=== PATIENT | female | born 1975 ===

== ENCOUNTER 2019-05-08 08:32 | Day surgery (SDC) | payer OTHER ==
--- NOTE | 2019-05-08 09:37 | Anesthesia Consultation ---
Anesthesia Consult and Med Hx Date of service: 05/08/19 - Airway Anesthetic Teeth Evaluation: Poor, Partials ROM Head & Neck: Adequate Mental/Hyoid Distance: Adequate Mallampati Class: Class II Intubation Access Assessment: Good - Pulmonary Exam CTA: Yes - Cardiac Exam Cardiac Exam: RRR - Pre-Operative Health Status ASA Pre-Surgery Classification: ASA3 Proposed Anesthetic Plan: General - Pulmonary Hx Smoking: Yes (1/2 PPD) Hx Sleep Apnea: No (BARBARA PRE SCREEN HIGH RISK) - Cardiovascular System Hx Hypertension: Yes (X 6 MONTHS) - Endocrine Hx Non-Insulin Dependent Diabetes: Yes - Hematic Hx Anemia: Yes - Other Systems Hx Cancer: No - Additional Comments Anesthesia Medical History Comments: Pt with DM, HTN , Obesity and current 1/2 pack a day smoker for D & C
--- NOTE | 2019-05-08 09:37 | Anesthesia Day of Surgery ---
Anesthesia Day of Surgery - Day of Surgery Patient Examined: Yes Patient H&P Reviewed: Yes Patient is NPO: Yes
[2019-05-08] MEDS ORDERED: ZOFRAN IV PRN (09:39)
[2019-05-08] MEDS ORDERED: DILAUDID IV PRN (09:39)
[2019-05-08 09:56] LABS: Basophils # (Auto) 0.1 K/mm3 (0.0-0.1); Basophils % (Auto) 1.1 % (0.0-1.8); Eosinophils # (Auto) 0.2 K/mm3 (0.0-0.4); Eosinophils % (Auto) 2.4 % (0.0-4.3); Hematocrit 38.3 % (30.3-42.9); Hemoglobin 12.3 gm/dl (10.1-14.3); Lymphocytes # (Auto) 2.5 K/mm3 (1.2-5.4); Lymphocytes % (Auto) 25.8 % (13.4-35.0); Mean Corpuscular HGB Conc 32 % (30-34); Mean Corpuscular Volume 74 fl (79-97); Monocytes # (Auto) 0.6 K/mm3 (0.0-0.8); Monocytes % (Auto) 5.8 % (0.0-7.3); Platelet Count 253 K/mm3 (140-440); Red Blood Count 5.17 M/mm3 (3.65-5.03); Red Cell Distribution Width 16.8 % (13.2-15.2)
[2019-05-08] MEDS ORDERED: VERSED IV NR (10:00)
[2019-05-08] MEDS ORDERED: NACL 0.9% 1000 ML 1,000 ML IV SCH (10:00)
[2019-05-08] MEDS ORDERED: DECADRON ONE (11:01)
[2019-05-08] MEDS ORDERED: XYLOCAINE MPF 2% ONE (11:01)
[2019-05-08] MEDS ORDERED: ZOFRAN ONE (11:01)
[2019-05-08] MEDS ORDERED: SUBLIMAZE ONE (11:02)
[2019-05-08] MEDS ORDERED: DIPRIVAN 10 MG/ML IV ONE ×2 (11:02→11:34)
[2019-05-08] MEDS ORDERED: NACL 0.9% IR ONE ×2 (11:42→11:43)
[2019-05-08] MEDS ORDERED: TORADOL ONE (12:03)
[2019-05-08] MEDS ORDERED: DEMEROL IV PRN (12:16)
[2019-05-08] MEDS ORDERED: PERCOCET 5/325 PO PRN (12:16)
--- NOTE | 2019-05-08 13:20 | Operative Report ---
Operative Report Operative Report: Preoperative diagnosis: 1. Abnormal uterine bleeding. 2. Thickened endometrium. 3. Leiomyomae. Postoperative diagnosis: same as preoperative diagnosis. Procedure: 1. Hysteroscopy. 2. D&C Surgeon: Dr. Cleary Drupal Php Developer: none Anesthesia: IV sedation with MAC. EBL: minimal IVF: RL 1 liter Complications: none Procedure details: The risks, benefits, and alternatives of the procedure were discussed in detail with the patient which included but not limited to infection, hemorrhage requiring a, and uterine perforation. The patient expressed understanding, her questions answered, and she gave informed consent. The patient was taken to the operating room with an IVF infusing Ringer's lactate. In the operating room, she was placed in the dorsal supine position and given IV sedation with MAC. Then, she was placed on the stirrups in a dorsal lithotomy position. The perineum vagina and cervix were washed and she was prepared and draped in the usual sterile fashion. Examination under anesthesia revealed normal external genitalia and vagina. The cervix was closed, long, posterior with mild bleeding at the os. The uterus was enlarged to 16-week size with irregular countour, anteverted, mobile, the adnexae were nonpalpable. A weighted speculum was placed placed on the posterior vaginal wall. The anterior lip of the cervix was grasped with a single-tooth tenaculum. Endocervical curettage was done. The cervical os was dilated and the hysteroscope was introduced into the uterine cavity. It revealed thickened endometrial lining. The ostia were not visualized. The hysteroscope was removed from the uterine cavity. A gentle curettage was performed until a gritty texture was noticed. The specimen which consisted of ECC and EMC was sent to pathology. The instruments were removed from the cervix and vagina. The count of laps, needles, sponges, and instrument were correct 2. The patient tolerated the procedure well. She was awakened from the anesthesia and taken to the recovery room in a stable condition.
[2019-05-08 16:21] VITALS: BP 110/58
== END 2019-05-08 08:33 | disposition home or self-care (01) ==
LOC: OR 08:32
PROVIDERS: ATTEND Obstetrics & Gynecology
DX: N85.02 Endometrial intraepithelial neoplasia [EIN] (principal); N93.9 Abnormal uterine and vaginal bleeding, unspecified; I10 Essential (primary) hypertension; E11.9 Type 2 diabetes mellitus without complications; D64.9 Anemia, unspecified; F17.210 Nicotine dependence, cigarettes, uncomplicated; Z79.899 Other long term (current) drug therapy; Z79.84 Long term (current) use of oral hypoglycemic drugs; Z98.890 Other specified postprocedural states
CPT/HCPCS: 36415; 58558; 81025; 82962; 85025; 88305; A4217; J1100; J1885; J2250; J2405; J2704; J3010; J7030